=== PATIENT | male | born 1960 | race African-American/Black ===

== ENCOUNTER 2018-05-15 12:20 | Emergency (ER) | payer SELFPAY ==
[2018-05-15] MEDS ORDERED: ONDANSETRON HCL INJ/PF 4 MG/2 ML SDV IV ONE (12:35)
[2018-05-15] MEDS ORDERED: KETOROLAC TROMETHAMINE INJ/PF 30 MG/1 ML SDV IV ONE (12:35)
[2018-05-15] MEDS ORDERED: NORMAL SALINE 1000 ML 1,000 ML IV ONE (12:35)
--- NOTE | 2018-05-15 12:38 | ER Document Report ---
ED GI/ - General Chief Complaint: Abdominal Pain Stated Complaint: NAUSEA, VOMITING, DIARRHEA Time Seen by Provider: 05/15/18 12:31 Notes: 57-year-old male presents with left lower quadrant abdominal discomfort nausea vomiting and some diarrhea starting this morning. The patient stated he is never really had this before. Denies fever chills. Denies sore throat cough muscle aches. Complains of aching left lower quadrant abdominal pain he rates it as severe. He denies any black bloody or tarry stools denies hematemesis stated he has thrown up green. Denies any strange or food out of his normal routine. Denies night sweats cough hemoptysis or gland swelling denies hematuria or dysuria. TRAVEL OUTSIDE OF THE [place] IN LAST 30 DAYS: No - Related Data Allergies/Adverse Reactions: No Known Allergies Allergy (Verified 05/15/18 12:20) Past Medical History - Social History Smoking Status: Never Smoker Family History: Reviewed & Not Pertinent Renal/ Medical History: Denies: Hx Peritoneal Dialysis Review of Systems - Review of Systems Constitutional: denies: Chills, Fever EENT: denies: Throat swelling Cardiovascular: denies: Chest pain, Dyspnea, Edema Respiratory: denies: Cough, Hemoptysis, Short of breath Gastrointestinal: Abdominal pain, Diarrhea, Nausea, Vomiting. denies: Constipation, Blood streaked bowels, Black stools, Rectal bleeding Musculoskeletal: denies: Back pain Skin: denies: Rash Neurological/Psychological: denies: Headaches -: Yes All other systems reviewed and negative Physical Exam - Vital signs Vitals: Temp Pulse Resp BP Pulse Ox 97.9 F 78 16 146/91 H 98 05/15/18 12:29 05/15/18 12:29 05/15/18 12:29 05/15/18 12:29 05/15/18 12:29 - Notes Notes: GENERAL_APPEARANCE: well_nourished, alert, cooperative, appears uncomfortable VITALS: reviewed, see vital signs table. HEAD: no_swelling\tenderness on the head. EYES: PERRL, EOMI, conjunctiva_clear. NOSE: no_nasal_discharge. MOUTH: (-)decreased moisture. THROAT: no_throat_inflammation, no_airway_obstruction. no_lymphadenopathy NECK: supple, no_neck_tenderness, (-)thyromegaly. BACK: no_back_tenderness. CHEST_WALL: no_chest_tenderness. LUNGS: no_wheezing, no_rales, no_rhonchi, (-)accessory muscle use, good air exchange bilateral. HEART: normal_rate, normal_rhythm, normal_S1, normal_S2, (-)S3, (-)S4, no_murmur, no_rub. ABDOMEN: Diminished_BS, soft, lower quadrant_abd_tenderness, (-)guarding, (- )rebound, no_organomegaly, no_abd_masses. EXTREMITIES: good pulses in all_extremities, no_swelling\tenderness in the extremities, no_edema. SKIN: warm, dry, good_color, no_rash. MENTAL_STATUS: speech_clear, oriented_X_3, normal_affect, responds_appropri ately to questions. Course - Re-evaluation Re-evalutation: 05/15/18 12:38 57-year-old male presents with left lower quadrant abdominal pain nausea vomiting diarrhea. This may be viral in nature. Patient may have colitis. Diverticulitis is a consideration. We will get a CT to further assess lab work. Urinalysis. 05/15/18 14:29 Abdomen/Pelvis CT 05/15/18 12:35 IMPRESSION: 1. Potential mild ileus. Fluid-filled loops of small and large bowel but no evidence of mechanical obstruction. 2. While there is mild diverticulosis in the distal colon, no clear CT evidence of active diverticulitis. CT does show a mild ileus. Lab work was fairly reassuring there is a little bit of hematuria but no infection. I spoke with the patient about this she should likely follow up with urology. Patient had near completely relief with Toradol. I will prescribe him some nausea medication Reglan for home. Have him follow-up with his doctor or if he starts to have symptoms again and does not improve with the home medicine to return to the ER. I do not believe he is obstructed. His repeat abdominal exam is soft and supple he has complete relief of pain and is not nauseous. Think this is likely viral in origin. However I did speak with the patient about this some disease processes do not declared himself right away and will do so over time and follow-up as the most important factor if things progress. - Vital Signs Vital signs: Temp Pulse Resp BP Pulse Ox 97.9 F 78 16 146/91 H 98 05/15/18 12:29 05/15/18 12:29 05/15/18 12:29 05/15/18 12:29 05/15/18 12:29 - Laboratory Result Diagrams: 05/15/18 12:58 05/15/18 12:58 Laboratory results interpreted by me: 05/15/18 05/15/18 05/15/18 12:58 12:58 13:09 Seg Neuts % (Manual) 97 H Lymphocytes % (Manual) 2 L Monocytes % (Manual) 1 L Abs Neuts (Manual) 8.9 H Abs Lymphs (Manual) 0.2 L BUN 23 H Glucose 116 H Total Protein 8.4 H Urine Blood MODERATE H Discharge - Discharge Clinical Impression: Ileus, Vomiting and diarrhea Condition: Good Disposition: HOME, SELF-CARE Instructions: Abdominal Pain ([facility]), Antispasmodics ([facility]) Prescriptions: Dicyclomine HCl [Bentyl 20 mg Tablet] 20 mg PO QID #30 tablet Metoclopramide HCl [Reglan 10 mg Tablet] 1 tab PO ASDIR PRN #25 tablet PRN Reason:
[2018-05-15 13:27] LABS: APPEARANCE,URINE CLEAR; BILIRUBIN,URINE NEGATIVE (NEGATIVE); COLOR,URINE YELLOW; GLUCOSE, URINE NEGATIVE (NEGATIVE); KETONES,URINE NEGATIVE (NEGATIVE); LEUKOCYTE ESTERASE,URINE NEGATIVE (NEGATIVE); NITRITE,URINE NEGATIVE (NEGATIVE); PROTEIN,URINE NEGATIVE (NEGATIVE); URINE SPECIFIC GRAVITY 1.025; UROBILINOGEN,URINE NEGATIVE mg/dL (<2.0)
[2018-05-15 13:28] LABS: HEMATOCRIT 43.1 % (37.9-51.0); HEMOGLOBIN 14.3 g/dL (13.5-17.0); MEAN CORPUSCULAR HGB CONC 33.2 g/dL (32.0-36.0); MEAN CORPUSCULAR VOLUME 96 fl (80-97); PLATELET COUNT 281 10^3/uL (150-450); RED BLOOD COUNT 4.47 10^6/uL (4.35-5.55); RED CELL DISTRIBUTION WIDTH 12.6 % (11.5-14.0); WHITE BLOOD COUNT 9.2 10^3/uL (4.0-10.5)
[2018-05-15 13:37] LABS: ALANINE AMINOTRANSFERASE 27 U/L (21-72); ALBUMIN 4.6 g/dL (3.5-5.0); ALKALINE PHOSPHATASE 61 U/L (38-126); ANION GAP 9 (5-19); ASPARTATE AMINO TRANSFERASE 49 U/L (17-59); BILIRUBIN,DIRECT 0.3 mg/dL (0.0-0.4); BILIRUBIN,TOTAL 0.9 mg/dL (0.2-1.3); BLOOD UREA NITROGEN 23 mg/dL (7-20); CALCIUM 9.3 mg/dL (8.4-10.2); CARBON DIOXIDE 27 mmol/L (22-30); CHLORIDE 105 mmol/L (98-107); GLUCOSE 116 mg/dL (75-110); LIPASE 63.1 U/L (23-300); POTASSIUM 4.6 mmol/L (3.6-5.0); SODIUM 141.2 mmol/L (137-145); TOTAL PROTEIN 8.4 g/dL (6.3-8.2)
[2018-05-15 14:18] LABS: ABSOLUTE LYMPHOCYTES# (MANUAL) 0.2 10^3/uL (0.5-4.7); ABSOLUTE MONOCYTES # (MANUAL) 0.1 10^3/uL (0.1-1.4); ABSOLUTE NEUTROPHILS# (MANUAL) 8.9 10^3/uL (1.7-8.2); BASOPHILS % (MANUAL) 0 % (0-2); EOSINOPHILS % (MANUAL) 0 % (0-6); LYMPHOCYTES % (MANUAL) 2 % (13-45); MONOCYTES % (MANUAL) 1 % (3-13); PLATELET COMMENT ADEQUATE; POLYCHROMASIA SLIGHT; SEGMENTED NEUTROPHILS % (MAN) 97 % (42-78); TOTAL CELLS COUNTED 100
--- NOTE | 2018-05-15 14:19 | RADIOLOGY REPORT (SQ) ---
EXAM DESCRIPTION: CT ABD/PELVIS WITH IV ONLY COMPLETED DATE/TIME: 05/15/2018 2:03 pm REASON FOR STUDY: LLQ PAIN COMPARISON: None. TECHNIQUE: CT scan of the abdomen and pelvis performed using helical scanning technique with dynamic intravenous contrast injection. No oral contrast. Images reviewed with lung, soft tissue, and bone windows. Reconstructed coronal and sagittal MPR images reviewed. Delayed images for evaluation of the urinary system also acquired. All images stored on PACS. All CT scanners at this facility use dose modulation, iterative reconstruction, and/or weight based d osing when appropriate to reduce radiation dose to as low as reasonably achievable (ALARA). [facility]: Dose Right [facility]: CareDose [facility]: Dose Right [facility]: Teradose 4D [facility]: yeppt CONTRAST TYPE AND DOSE: contrast/concentration: Isovue 350.00 mg/ml; Total Contrast Delivered: 87.0 ml; Total Saline Delivered: 69.0 ml RENAL FUNCTION: GFR > 60. RADIATION DOSE: CT Rad equipment meets quality standard of care and radiation dose reduction techniq ues were employed. CTDIvol: 6.3 - 8.7 mGy. DLP: 823 mGy-cm.. LIMITATIONS: None. FINDINGS: LOWER CHEST: No significant findings. No nodules or infiltrates. LIVER: Normal size. No masses. No dilated ducts. SPLEEN: Normal size. No focal lesions. PANCREAS: No masses. No significant calcifications. No adjacent inflammation or peripancreatic fluid collections. Pancreatic duct not dilated. GALLBLADDER: Contracted. ADRENAL GLANDS: No significant masses or asymmetry. RIGHT KIDNEY AND URETER: No solid masses. No significant calcification. No hydronephrosis or hydroure ter. LEFT KIDNEY AND URETER: No solid masses. No significant calcification. No hydronephrosis or hydrouret er. AORTA AND VESSELS: No aneurysm. No dissection. Renal arteries, SMA, celiac without stenosis. RETROPERITONEUM: No retroperitoneal adenopathy, hemorrhage or masses. BOWEL AND PERITONEAL CAVITY: Mild fluid-filled nondistended loops of small bowel. Mild fluid through out the proximal colon. No active inflammatory changes. Mild distal diverticular disease. No ascit es or abnormal gas. APPENDIX: Normal. PELVIS: No mass. No free fluid. Normal bladder. ABDOMINAL WALL: No masses. No hernias. BONES: No significant or acute findings. OTHER: No other significant finding. IMPRESSION: 1. Potential mild ileus. Fluid-filled loops of small and large bowel but no evidence of mechanical obstruction. 2. While there is mild diverticulosis in the distal colon, no clear CT evid ence of active diverticulitis. TECHNICAL DOCUMENTATION: JOB ID: [id number] Quality ID # [id number]: Final reports with documentation of one or more dose reduction techniques (e.g., Au tomated exposure control, adjustment of the mA and/or kV according to patient size, use of iterative reconstruction technique) 2010 [employer]- All Rights Reserved Reading location - IP/workstation name: [email or web address]
[2018-05-15 14:46] VITALS: BP 148/87
== END 2018-05-15 14:46 | disposition home or self-care (01) ==
LOC: ER 12:20
DX: K56.7 Ileus, unspecified (principal); R10.32 Left lower quadrant pain; R11.2 Nausea with vomiting, unspecified; R19.7 Diarrhea, unspecified
CPT/HCPCS: 99284; 96361; 96374; 96375; 36415; 83690; 85025; 80053; 81001; 74177; J1885; J2405; J7030

== ENCOUNTER 2019-03-17 08:10 | Emergency (ER) | payer SELFPAY ==
--- NOTE | 2019-03-17 10:14 | ER Document Report ---
HPI - HPI Time Seen by Provider: 03/17/19 09:53 Pain Level: Denies Context: Patient is a 58-year-old male who presents to the emergency department with a chief complaint of rash. Patient reports for the past 2 weeks he has had a irritating itching rash to his groin area bilaterally. Patient states he has been scratching more vigorously at night as it does appear to be worse at night. Patient denies drainage or swelling. Patient states he is just using over-the- counter lotion to the area. Patient reports lotion does initially help as it causes a cooling and soothing feeling. Patient denies redness. Patient states he has had an episode similar in the past during the summer when he was sweating a lot. Past Medical History - General Information source: Patient - Social History Smoking Status: Never Smoker Chew tobacco use (# tins/day): No Frequency of alcohol use: Heavy Drug Abuse: None Lives with: Alone Family History: Reviewed & Not Pertinent Patient has suicidal ideation: No Patient has homicidal ideation: No - Past Medical History Cardiac Medical History: Reports: None Pulmonary Medical History: Reports: None EENT Medical History: Reports: None Neurological Medical History: Reports: None Endocrine Medical History: Reports: None Renal/ Medical History: Reports: None. Denies: Hx Peritoneal Dialysis Malignancy Medical History: Reports None GI Medical History: Reports: None Musculoskeletal Medical History: Reports None Skin Medical History: Reports None Psychiatric Medical History: Reports: None Traumatic Medical History: Reports: None Infectious Medical History: Reports: None Surgical Hx: Negative Vertical Provider Document - CONSTITUTIONAL Agree With Documented VS: Yes Exam Limitations: No Limitations General Appearance: No Apparent Distress - INFECTION CONTROL TRAVEL OUTSIDE OF THE [place] IN LAST 30 DAYS: No - HEENT HEENT: Atraumatic, Normocephalic, PERRLA - NECK Neck: Normal Inspection - RESPIRATORY Respiratory: Breath Sounds Normal, No Respiratory Distress - CARDIOVASCULAR Cardiovascular: Regular Rate, Regular Rhythm - GI/ABDOMEN Gastrointestinal: Abdomen Soft, Abdomen Non-Tender - MUSCULOSKELETAL/EXTREMETIES Musculoskeletal/Extremeties: FROM, Non-Tender - NEURO Level of Consciousness: Awake, Alert, Appropriate - DERM Integumentary: Warm, Rash Notes: Erythematous ring shaped, dry appearing rash noted to the bilateral groin area. There is no abscess. There is no drainage. There is no testicular or scrotal involvement. Course - Vital Signs Vital signs: Temp Pulse Resp BP Pulse Ox 97.7 F 64 18 136/94 H 100 03/17/19 08:11 03/17/19 08:11 03/17/19 08:11 03/17/19 08:11 03/17/19 08:11 Discharge - Discharge Clinical Impression: Tinea cruris Condition: Stable Disposition: HOME, SELF-CARE Additional Instructions: Today he was seen in the emergency department for bilateral rash to the groin area. Your symptoms and physical examination are consistent with a jock itch type rash. Please wear loose underwear. You can use an [id number] Lotrimin cream/spray to the area. Use this as directed. Please keep the area clean and dry. Do not scratch as this can open the skin and cause infection. If you do develop a fever, increasing pain or discomfort please return to the emergency department. Referrals: [facility] [Provider Group] - Follow up as needed [facility] [Provider Group] - Follow up as needed
[2019-03-17 10:22] VITALS: BP 147/100
== END 2019-03-17 10:35 | disposition home or self-care (01) ==
LOC: ER 08:10
DX: B35.6 Tinea cruris (principal)
CPT/HCPCS: 99283